=== PATIENT | male | born 1970 | race Caucasian/White ===

== ENCOUNTER 2018-08-29 13:37 | Emergency (ER) | payer BC, OTHER ==
[2018-08-29 13:53] VITALS: PULSE 64; TEMP 98.2; BMI 34.2
[2018-08-29] MEDS ORDERED: SODIUM CHLORIDE 1,000 ML IV ONE (14:59)
[2018-08-29] MEDS ORDERED: KETOROLAC TROMETHAMINE 30 MG/1 ML VIAL IVPUSH ONE (14:59)
[2018-08-29] MEDS ORDERED: ONDANSETRON 4 MG/2 ML VIAL IVPB ONE (14:59)
--- NOTE | 2018-08-29 15:07 | PDOC ---
History of Present Illness - General Chief Complaint: Pain, Acute Stated Complaint: ABDOMINAL PAIN Time Seen by Provider: 08/29/18 14:50 History Source: Patient Exam Limitations: No Limitations - History of Present Illness Travel History: No Initial Comments: 08/29/18 15:00 48y M no pmhx presents with L flank pain. Pt notes he was fine until around 8: 00 am when he had sudden onset of L flank pain that gradually started radiating to the LLQ. the pain is constant Pt endorses nauseus, denies any fever/chills, cp, sob, diaphoersis, bauman, ruq pain, leg swelling, diarrhea, melena, numbness/ tingling/ewakness. Pt has never had this pain in the past. 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 Pt notes the pain seems to worsen whenhe sits and improved when he is standing. no associated motor weakenss/tingling/numbness, urinary or bowel incontinence. pt takes vitaminC 3000mg daily for the past few weeks social: denies smoking, etoh abuse, works as healthcare economics consultant family hx: dm, obesiity, htn Constitutional - no reported Fever, Chills, HEENT: no reported vision changes, sore throat Respiratory: no reported cough, sob, hemoptysis Cardiac: no reported chest pain, palpitations, light headedness, leg swelling Abd/GI: no reported abd pain, nausea, vomiting, blood per rectum, melena, diarrhea : no reported dysuria, frequency, discharge Musculskelatal - no reported back pain, joint swelling skin - no reported bruising, erythema, rash neurological: no reported headache, numbness, focal weakness, tingling, ataxia, hematologic: no reported easy bruising, easy bleeding GENERAL: The patient is awake, alert, and fully oriented, appears uncomfortable , HEAD: Normocephalic, atraumatic. EYES: extraocular movements intact, sclera anicteric, conjunctiva clear. ENT: Normal voice, Moist mucous membranes. NECK: Normal range of motion, supple LUNGS: Breath sounds equal, clear to auscultation bilaterally. No wheezes, no rhonchi, no rales. HEART: Regular rate and rhythm, normal S1 and S2 without murmur, rub or gallop. ABDOMEN: Soft, mild L sided abd ttp, No guarding, no rebound. No CVA tenderness EXTREMITIES: Normal range of motion, no edema. NEUROLOGICAL: No facial assymetry, Normal speech, PSYCH: Normal mood, normal affect. SKIN: Warm, Dry, normal turgor, ddx - likely kidney stones, consider msk pain, less likely colitis. no risk factors or symptoms suggestive of ao dissection will ck labs, ua toradol for pain, zofran for nausea, fluids for hydration ct abd to eval for kidney stones Past History - Past Medical History Allergies/Adverse Reactions: Allergies Allergy/AdvReac Type Severity Reaction Status Date / Time Penicillins Allergy Swelling Verified 07/23/17 00:33 Home Medications: Ambulatory Orders Diclofenac Sodium [Voltaren -] 75 mg PO BID PRN #20 tablet. 07/23/17 Tizanidine HCl 4 mg PO TID PRN #12 tablet 07/23/17 Cyclobenzaprine HCl [Flexeril -] 10 mg PO HS #10 tablet 08/29/18 Diclofenac Sodium 75 mg PO BID #20 tablet. 08/29/18 Metoclopramide HCl [Reglan] 10 mg PO TID #20 tablet 08/29/18 COPD: No - Suicide/Smoking/Psychosocial Hx Smoking History: Former smoker Have you smoked in the past 12 months: No Number of Cigarettes Smoked Daily: 0 Information on smoking cessation initiated: No Hx Alcohol Use: No Drug/Substance Use Hx: No Substance Use Type: None *Physical Exam - Vital Signs Last Vital Signs Temp Pulse Resp BP Pulse Ox 98.2 F 64 18 126/75 98 08/29/18 13:49 08/29/18 13:49 08/29/18 13:49 08/29/18 13:49 08/29/18 13:49 ED Treatment Course - LABORATORY CBC & Chemistry Diagram: 08/29/18 15:34 08/29/18 15:34 *DC/Admit/Observation/Transfer Diagnosis at time of Disposition: Muscle spasm - Discharge Dispostion Disposition: HOME Condition at time of disposition: Stable - Prescriptions Prescriptions: Cyclobenzaprine HCl [Flexeril -] 10 mg PO HS #10 tablet Diclofenac Sodium 75 mg PO BID #20 tablet. Metoclopramide HCl [Reglan] 10 mg PO TID #20 tablet - Referrals Referrals: Vanessa Sam MD [Staff Physician] - Raz Rodriguez DO [Staff Physician] - - Patient Instructions Printed Discharge Instructions: DI for Low Back Pain, DI for Muscle Strain - Post Discharge Activity Forms/Work/School Notes: Back to Work
[2018-08-29] MEDS ORDERED: KETOROLAC TROMETHAMINE 30 MG/1 ML VIAL ONE (15:22)
[2018-08-29] MEDS ORDERED: ONDANSETRON 4 MG/2 ML VIAL ONE (15:22)
[2018-08-29 15:53] LABS: URINE APPEARANCE CLEAR; URINE BILIRUBIN NEGATIVE (NEGATIVE); URINE COLOR YELLOW; URINE GLUCOSE (UA) NEGATIVE (NEGATIVE); URINE KETONE TRACE (NEGATIVE); URINE LEUK ESTERASE NEGATIVE (NEGATIVE); URINE NITRITE NEGATIVE (NEGATIVE); URINE PROTEIN NEGATIVE (NEGATIVE); URINE UROBILINOGEN 0.2 mg/dL (0.2-1.0)
[2018-08-29 15:54] LABS: BASO % 0.4 % (0-2.0); EOS % 0.4 % (0-4.5); HEMATOCRIT 39.8 % (35.4-49); HEMOGLOBIN 13.8 GM/dL (11.7-16.9); LYMPH % 8.4 % (8-40); MCH 30.2 pg (25.7-33.7); MCHC 34.6 g/dl (32.0-35.9); MEAN CELL VOLUME 87.3 fl (80-96); MEAN PLT VOLUME 8.7 fl (7.5-11.1); MONO % 2.8 % (3.8-10.2); PLATELET COUNT 245 K/MM3 (134-434); RBC 4.56 M/mm3 (4.00-5.60); RDW 12.9 % (11.9-15.9); WHITE BLOOD COUNT 6.7 K/mm3 (4.0-10.0)
[2018-08-29 16:26] LABS: ALBUMIN 4.3 g/dl (3.4-5.0); BILIRUBIN,TOTAL 0.6 mg/dL (0.2-1); BLOOD UREA NITROGEN 15.9 mg/dL (7-18); CALCIUM 9.1 mg/dL (8.5-10.1); CREATININE 1.1 mg/dL (0.55-1.3); POTASSIUM 4.1 mmol/L (3.5-5.1)
--- NOTE | 2018-08-29 16:45 | PDOC ---
*Physical Exam - Vital Signs Last Vital Signs Temp Pulse Resp BP Pulse Ox 98.2 F 64 18 126/75 98 08/29/18 13:49 08/29/18 13:49 08/29/18 13:49 08/29/18 13:49 08/29/18 13:49 - Physical Exam Comments: 08/29/18 16:45 Sign-out received from outgoing ER provider Misha. Pt interviewed and examined. Ancillary studies reviewed. Awaiting CT results. ED Treatment Course - LABORATORY CBC & Chemistry Diagram: 08/29/18 15:34 08/29/18 15:34 - ADDITIONAL ORDERS Additional order review: Laboratory Results 08/29/18 08/29/18 08/29/18 15:34 15:34 15:34 Sodium 139 Potassium 4.1 Chloride 105 Carbon Dioxide 28 Anion Gap 6 L BUN 15.9 Creatinine 1.1 Est GFR (CKD-EPI)AfAm 90.88 Est GFR (CKD-EPI)NonAf 78.41 Random Glucose 109 H Calcium 9.1 Total Bilirubin 0.6 AST 21 ALT 30 Alkaline Phosphatase 72 Total Protein 7.0 Albumin 4.3 Lipase 119 Urine Color Yellow Urine Appearance Clear Urine pH 5.0 Ur Specific [place] 1.034 Urine Protein Negative Urine Glucose (UA) Negative Urine Ketones Trace H Urine Blood Negative Urine Nitrite Negative Urine Bilirubin Negative Urine Urobilinogen 0.2 Ur Leukocyte Esterase Negative 08/29/18 15:34 RBC 4.56 MCV 87.3 MCHC 34.6 RDW 12.9 MPV 8.7 Neutrophils % 88.0 H Lymphocytes % 8.4 Monocytes % 2.8 L Eosinophils % 0.4 Basophils % 0.4 - Medications Given in the ED: ED Medications Discontinued Medications Generic Name Dose Route Start Last Admin Trade Name Freq PRN Reason Stop Dose Admin Sodium Chloride 1,000 mls @ 1,000 mls/hr 08/29/18 14:59 08/29/18 15:20 Normal Saline - IV 08/29/18 15:58 1,000 mls/hr .Q1H ONE Administration Ketorolac Tromethamine 30 mg 08/29/18 14:59 08/29/18 15:20 Toradol Injection - IVPUSH 08/29/18 15:00 30 mg ONCE ONE Administration Ondansetron HCl 4 mg 08/29/18 14:59 08/29/18 15:20 Zofran Injection IVPB 08/29/18 15:00 4 mg ONCE ONE Administration *DC/Admit/Observation/Transfer Diagnosis at time of Disposition: Muscle spasm - Discharge Dispostion Disposition: HOME Condition at time of disposition: Stable - Prescriptions Prescriptions: Cyclobenzaprine HCl [Flexeril -] 10 mg PO HS #10 tablet Diclofenac Sodium 75 mg PO BID #20 tablet. Metoclopramide HCl [Reglan] 10 mg PO TID #20 tablet - Referrals Referrals: Raz Rodriguez DO [Staff Physician] - Vanessa Sam MD [Staff Physician] - - Patient Instructions Printed Discharge Instructions: DI for Low Back Pain, DI for Muscle Strain - Post Discharge Activity Forms/Work/School Notes: Back to Work
[2018-08-29 17:49] VITALS: BP 138/87
== END 2018-08-29 17:25 | disposition home or self-care (01) ==
LOC: JER 13:37
PROC: 3E0333Z Introduction of Anti-inflammatory into Peripheral Vein, Percutaneous Approach (ICD-10-PCS; principal; 2018-08-29)
PROC: 3E0337Z Introduction of Electrolytic and Water Balance Substance into Peripheral Vein, Percutaneous Approach (ICD-10-PCS; 2018-08-29)
PROC: 3E033GC Introduction of Other Therapeutic Substance into Peripheral Vein, Percutaneous Approach (ICD-10-PCS; 2018-08-29)
DX: M62.838 Other muscle spasm (principal); Z87.891 Personal history of nicotine dependence
CPT/HCPCS: 36415; 74176-TC; 80053; 81003; 83690; 85025; 99281-25; J7030

== ENCOUNTER 2022-05-26 03:15 | Emergency (ER) | payer BC, OTHER ==
[2022-05-26 03:33] VITALS: PULSE 95; RESP 18; TEMP 99.1; BMI 34.5
[2022-05-26 03:45] VITALS: BP 149/102
== END 2022-05-26 03:52 | disposition home or self-care (01) ==
LOC: FER 03:15
DX: K04.7 Periapical abscess without sinus (principal)
CPT/HCPCS: 99282-25

== ENCOUNTER 2022-07-31 07:07 | Day surgery (SDC) | payer BC, OTHER ==
[2022-07-25 14:41] VITALS: BMI 36.8
[2022-07-31] MEDS ORDERED: MIDAZOLAM HCL 2 MG/2 ML SINGLE DOSE VIAL ONE (08:06)
[2022-07-31] MEDS ORDERED: PROPOFOL 20 ML ONE ×2 (08:06→08:33)
[2022-07-31] MEDS ORDERED: BUPIVACAINE HCL/EPINEPHRINE/PF 30 ML VIAL IJ ONE (08:19)
[2022-07-31] MEDS ORDERED: CLINDAMYCIN 600MG PREMIX IVPB 600 MG/50 ML BAG IVPB ONE ×2 (08:50)
[2022-07-31] MEDS ORDERED: DEXAMETHASONE SOD PHOSPHATE 4 MG/1 ML VIAL ONE (08:57)
[2022-07-31] MEDS ORDERED: ONDANSETRON 4 MG/2 ML VIAL ONE (08:57)
[2022-07-31] MEDS ORDERED: KETOROLAC TROMETHAMINE 30 MG/1 ML VIAL ONE (08:58)
[2022-07-31] MEDS ORDERED: ACETAMINOPHEN 325 MG TABLET (FP) PO PRN (09:43)
[2022-07-31] MEDS ORDERED: ONDANSETRON 4 MG/2 ML VIAL IVPUSH PRN (09:43)
[2022-07-31] MEDS ORDERED: LACTATED RINGERS SOLUTION 1,000 ML IV SCH (09:45)
[2022-07-31] MEDS ORDERED: FENTANYL CITRATE/PF 50 MCG/ML VIAL ONE (10:08)
[2022-07-31] MEDS ORDERED: oxyCODONE HCL 5 MG TABLET PO PRN (10:47)
[2022-07-31] MEDS ORDERED: oxyCODONE HCL 5 MG TABLET PO ONE (10:50)
[2022-07-31 11:04] VITALS: PULSE 82; RESP 16; TEMP 97.4
[2022-07-31 11:32] VITALS: BP 128/89
== END 2022-07-31 11:31 | disposition home or self-care (01) ==
LOC: FASU 07:07
PROVIDERS: ATTEND Orthopaedic Surgery
PROC: 0SQC4ZZ Repair Right Knee Joint, Percutaneous Endoscopic Approach (ICD-10-PCS; principal; 2022-07-31 08:57)
DX: S83.241A Other tear of medial meniscus, current injury, right knee, initial encounter (principal); X58.XXXA Exposure to other specified factors, initial encounter; Y93.9 Activity, unspecified; Y92.9 Unspecified place or not applicable
CPT/HCPCS: 94760; C1713